=== PATIENT | male | born 1960 | race Caucasian/White ===

== ENCOUNTER 2017-10-31 13:06 | Emergency (ER) | payer OTHER ==
[~2017-10-31] VITALS: Ht 182.9 cm; Wt 122.5 kg
[~2017-10-31 13:06] MED LIST: ADULT LOW DOSE81 MG PO; AMBIEN 10 MG TA10 MG; AMBIEN 10 MG TA10 MG PO; ASPIRIN EC81 M1 PO; AVELOX 400 MG400 MG PO; BUPROPION XL300 MG PO; CLONAZEPAM; CLONAZEPAM PO; COUMADIN 5 MG TA5 M1 PO; CYCLOBENZAPRINE10 MG PO; DEPAKOTE ER500 MG PO; DESYREL100 MG; FLEXERIL; HYDROCHLOROTH12.5 MG; HYDROCHLOROTHIA25 M1 PO; HYDROCODON-ACE1 EACH; LOPRESSOR 12.12.5 MG; LOPRESSOR 50 MG50 M1 PO; LOPRESSOR100 MG PO; LORTAB 5-500 T1 EAC1 PO; LOVENOX SQ; OMEPRAZOLE 20 M20 M1 PO; OMEPRAZOLE20 M2; PAROXETINE HCL40 MG; PAXIL 20 MG TAB20 M1 PO; PAXIL10 MG PO; SIMVASTATIN20 MG PO; TOPROL XL100 MG PO; WELLBUTRIN 100100 M1 PO
[2017-10-31] MEDS ORDERED: HYDROCODON-ACE1 EAC5 PO (13:22)
== END 2017-10-31 15:23 | disposition home or self-care (01) ==
LOC: ER 13:06
DX: M54.5 Low back pain (principal); I10 Essential (primary) hypertension; F41.9 Anxiety disorder, unspecified; F32.9 Major depressive disorder, single episode, unspecified; E78.5 Hyperlipidemia, unspecified; K21.9 Gastro-esophageal reflux disease without esophagitis; E66.9 Obesity, unspecified; Z68.36 Body mass index [BMI] 36.0-36.9, adult